=== PATIENT | female | born 1980 | race African-American/Black ===

== ENCOUNTER 2017-03-27 13:00 | Emergency (ER) | payer SELFPAY ==
[~2017-03-27] VITALS: Ht 160 cm; Wt 79.8 kg
[~2017-03-27 13:00] MED LIST: ONDA4TAB10 PO
[2017-03-27] MEDS ORDERED: ACETAMINOPHEN/CODEINE 300/30MG TABLET PO ONE (13:45)
[2017-03-27] MEDS ORDERED: ACET-704 PO (13:56)
--- NOTE | 2017-03-27 13:56 | PHYS DOC ---
Past History Past Medical History: Anxiety, Depression Past Surgical History: No Surgical History Alcohol Use: Rarely Drug Use: None Adult General Chief Complaint Chief Complaint: FACE PROBLEM HPI HPI 37-year-old male patient states she had pain in her upper lips for the last 2 or 3 days and thinks she has a cold sore or infection. Patient denies recent fever and chills and injury to lips. Patient states she had the same problem several years ago and treated with special antibiotic. Review of Systems Review of Systems Constitutional: Denies fever or chills [] Eyes: Denies change in visual acuity, redness, or eye pain [] HENT: Denies nasal congestion or sore throat [] Respiratory: Denies cough or shortness of breath [] Cardiovascular: No additional information not addressed in HPI [] GI: Denies abdominal pain, nausea, vomiting, bloody stools or diarrhea [] : Denies dysuria or hematuria [] Musculoskeletal: Denies back pain or joint pain [] Integument: Reports rash or skin lesions [] Neurologic: Denies headache, focal weakness or sensory changes [] Endocrine: Denies polyuria or polydipsia [] All other systems were reviewed and found to be within normal limits, except as documented in this note. Current Medications Current Medications Current Medications Medications (Trade) Dose Ordered Sig/Tico Start Time Stop Time Status Last Admin Dose Admin Acetaminophen/ Codeine Phosphate (Tylenol #3) 1 tab 1X ONCE 03/27/17 13:45 03/27/17 13:46 DC Allergies Allergies Allergies Coded Allergies Type Severity Reaction Last Updated Verified No Known Drug Allergies 08/13/15 No Physical Exam Physical Exam Constitutional: Well developed, well nourished, mild distress, non-toxic appearance. [] HENT: Normocephalic, atraumatic, bilateral external ears normal, oropharynx moist, no oral exudates, nose normal, upper lip without edema, 2 small areas of tenderness without other Eyes: PERRLA, EOMI, conjunctiva normal, no discharge. [] Neck: Normal range of motion, no tenderness, supple, no stridor. [] Cardiovascular:Heart rate regular rhythm, no murmur [] Lungs & Thorax: Bilateral breath sounds clear to auscultation [] EKG EKG [] Radiology/Procedures Radiology/Procedures [] Course & Med Decision Making Course & Med Decision Making Evaluation of patient in ER showed 37-year-old female patient complaining of upper lip pain and 2 small lesion on her lip. Patient had unremarkable physical exam except for upper lip tenderness with 2 macular lesions. Plan to discharge patient home with diagnosis of cold sore. Dragon Disclaimer Dragon Disclaimer This electronic medical record was generated, in whole or in part, using a voice recognition dictation system. Departure Departure: Impression: Primary Impression: Cold sore Disposition: HOME, SELF-CARE (At 1402) Condition: STABLE Referrals: JAISON SUERO MD (PCP) Patient Instructions: Cold Sore Additional Instructions: Follow-up with your primary care physician as needed Apply [id number] Abreva on affected area twice a day Scripts Acetaminophen With Codeine (TYLENOL WITH CODEINE #3 TABLET) 1 Each Tablet 1 TAB PO Q6HRS, #10 TAB Prov: LADY AMAYA MD 03/27/17 LADY AMAYA MD Mar 27, 2017 13:56
[2017-03-27 14:00] VITALS: BP 107/71
== END 2017-03-27 14:25 | disposition home or self-care (01) ==
LOC: ER 13:00
DX: B00.1 Herpesviral vesicular dermatitis (principal); K13.79 Other lesions of oral mucosa
CPT/HCPCS: 99283

== ENCOUNTER 2021-01-16 02:23 | Emergency (ER) | payer OTHER ==
[~2021-01-16] VITALS: Ht 160 cm; Wt 80.5 kg
[~2021-01-16 02:23] MED LIST changes: +ACET-704 PO
[2021-01-16 02:35] VITALS: BP 109/68
[2021-01-16] MEDS ORDERED: CEPH500C PO (02:58)
--- NOTE | 2021-01-16 02:59 | PHYS DOC ---
Past History Past Medical History: Anxiety, Depression Past Surgical History: No Surgical History Alcohol Use: Rarely Drug Use: None Adult General Chief Complaint Chief Complaint: PAIN ON URINATION HPI HPI Patient is a 41-year-old female who presents with a chief complaint of urinary tract infection. States she went to an urgent care today, was diagnosed with a urinary tract infection and was given a prescription of Cipro but did not get a dose before she left. States she went to the [facility] to pick it up and was told that they were out of stock of this and she was not able to pick it up. States she is here to get antibiotics. Denies any headache, fevers, chest pain, shortness of breath, abdominal pain, nausea, vomiting, hematuria. Denies any vaginal bleeding, discharge or pain or history of STIs. Review of Systems Review of Systems Review of systems otherwise unremarkable except noted in HPI Allergies Allergies Allergies Coded Allergies Type Severity Reaction Last Updated Verified No Known Drug Allergies 08/13/15 No Physical Exam Physical Exam Constitutional: Well developed, well nourished, no acute distress, non-toxic appearance. [] HENT: Normocephalic, atraumatic, Neck: Normal range of motion, no tenderness, supple, no stridor. [] Cardiovascular:Heart rate regular rhythm, no murmur [] Lungs & Thorax: Bilateral breath sounds clear to auscultation [] Abdomen: soft, no tenderness, no masses, no pulsatile masses. [] Skin: Warm, dry, no erythema, no rash. [] Back: no CVA tenderness. [] Neurologic: Alert and oriented X 3, no focal deficits noted. [] Psychologic: Affect normal, judgement normal, mood normal. [] Current Patient Data Vital Signs Vital Signs Date Time Temp Pulse Resp B/P (MAP) Pulse Ox O2 Delivery O2 Flow Rate FiO2 01/16/21 02:35 97.7 79 18 109/68 (82) 98 Room Air EKG EKG [] Radiology/Procedures Radiology/Procedures [] Heart Score C/O Chest Pain: N/A Risk Factors: Risk Factors: DM, Current or recent (<one month) smoker, HTN, HLP, family histo ry of CAD, obesity. Risk Scores: Risk Factors: DM, Current or recent (<one month) smoker, HTN, HLP, family history of CAD, obesity. Course & Med Decision Making Course & Med Decision Making Patient is a 41-year-old female who presents with urinary tract infection Vital signs not concerning. Physical exam noted above. negative. Started patient on Keflex in the ED and given handwritten prescription. Given for imaging. Discussed all findings with patient. Advised to take antibiotics as prescribed until gone. Advised to follow-up with the primary care physician on Monday to set up a follow-up visit. Gave return precautions to the ED. Patient grateful, verbalized understanding and agreed with plan of discharge. Dragon Disclaimer Dragon Disclaimer This electronic medical record was generated, in whole or in part, using a voice recognition dictation system. Departure Departure: Impression: Primary Impression: Urinary tract infection Disposition: HOME / SELF CARE / HOMELESS Condition: GOOD Referrals: PCP,NATALIYA (PCP) SREEDHAR ADAMS Patient Instructions: Urinary Tract Infection Additional Instructions: Thank you for coming into the emergency department tonight and allowing us to take care of you. Please read the attached information carefully to go over things we discussed. You were started on a new antibiotic here in the emergency department and given a paper prescription to take to the pharmacy tomorrow and get filled. Please take as prescribed and until gone. Please take with plenty of water. Please follow-up with your primary care physician on Monday to update on ED visit and set up a follow-up as soon as possible. If you do not have a primary care physician you can call the office at the number provided to establish care. Please come back to the ED with new or concerning symptoms as discussed. Scripts Cephalexin (KEFLEX) 500 Mg Capsule 1 CAP PO BID for UTI for 7 Days, #14 CAP Prov: CAPRICE JUAREZ MD 01/16/21 CAPRICE JUAREZ MD Jan 16, 2021 02:59
[2021-01-16] MEDS ORDERED: CEPHALEXIN 250 MG CAPSULE PO ONE (03:00)
[2021-01-16] MEDS ORDERED: PHENAZOPYRIDINE 200 MG TABLET. PO ONE (03:00)
[2021-01-16 03:06] LABS: COLOR,URINE YELLOW
[2021-01-16 03:07] LABS: BACTERIA,URINE MOD /HPF (0-FEW); BILIRUBIN,URINE NEG (NEG); CLARITY,URINE HAZY; GLUCOSE,URINE NEG (NEG); NITRITE,URINE POS (NEG); SQUAMOUS EPITHELIAL CELL,UR OCC /LPF; WBC,URINE >40 /HPF (0-4)
== END 2021-01-16 03:09 | disposition home or self-care (01) ==
LOC: ER 02:23
DX: N39.0 Urinary tract infection, site not specified (principal); Z87.440 Personal history of urinary (tract) infections
CPT/HCPCS: 81001; 81025; 87077; 87086; 87186; 99283-25

== ENCOUNTER 2021-08-14 08:39 | Emergency (ER) | payer OTHER ==
[~2021-08-14] VITALS: Ht 162.6 cm; Wt 81.8 kg
[~2021-08-14 08:39] MED LIST changes: +CEPH500C PO
[2021-08-14 08:46] VITALS: BP 127/83
[2021-08-14] MEDS ORDERED: AMOX1TAB61 PO (09:14)
[2021-08-14] MEDS ORDERED: HYDR-2155 PO (09:14)
--- NOTE | 2021-08-14 09:15 | PHYS DOC ---
Past History Past Medical History: Anxiety, Depression Past Surgical History: No Surgical History Alcohol Use: None Drug Use: None General Adult EDM: Chief Complaint: DENTAL PROBLEM HPI: HPI: Patient is a 41-year-old female coming in for left lower molar pain and facial swelling. Patient states that she has had a history of cavities and dental infections but thinks it was exacerbated by eating some candy. Denies any damage or breaking to the tooth. Denies any fevers or purulent drainage. Denies any possibility of Review of Systems: Review of Systems: All other systems within normal limits except for as noted in the HPI Allergies: Allergies: Allergies Coded Allergies Type Severity Reaction Last Updated Verified No Known Drug Allergies 08/13/15 No Physical Exam: PE: Constitutional: Well developed, well nourished, no acute distress, non-toxic appearance. [] HENT: Normocephalic, atraumatic, bilateral external ears normal, nose normal. Multiple dental caries, slight swelling of gingiva, no fluctuance [] Eyes: PERRLA, conjunctiva normal, no discharge. [] Neck: No rigidity, supple, no stridor. [] Cardiovascular: Regular rate and rhythm, brisk cap refill [] Lungs & Thorax: Non labored symmetric respirations, no tachypnea or respiratory distress [] Abdomen: Soft, nondistended. Skin: Warm, dry, no erythema, no rash. [] Back: Unremarkable Extremities: No deformities, range of motion grossly intact, no lower extremity edema [] Neurologic: Alert and oriented X 3, no focal deficits noted. [] Psychologic: Affect normal, judgement normal, mood normal. [] Current Patient Data: Vital Signs: Vital Signs Date Time Temp Pulse Resp B/P (MAP) Pulse Ox O2 Delivery O2 Flow Rate FiO2 08/14/21 08:46 98.3 75 16 127/83 (98) 98 Room Air EKG: EKG: [] Radiology/Procedures: Radiology/Procedures: [] Heart Score: C/O Chest Pain: No Risk Factors: Risk Factors: DM, Current or recent (<one month) smoker, HTN, HLP, family history of CAD, obesity. Risk Scores: Score 0 - 3: 2.5% MACE over next 6 weeks - Discharge Home Score 4 - 6: 20.3% MACE over next 6 weeks - Admit for Clinical Observation Score 7 - 10: 72.7% MACE over next 6 weeks - Early Invasive Strategies Course & Med Decision Making: Course & Med Decision Making Pertinent Labs and Imaging studies reviewed. (See chart for details) [] Vincenzo Disclaimer: Vincenzo Disclaimer: This electronic medical record was generated, in whole or in part, using a voice recognition dictation system. Departure Departure: Impression: Primary Impression: Infected dental caries Disposition: HOME / SELF CARE / HOMELESS Condition: STABLE Referrals: PCP,NO (PCP) Patient Instructions: Dental Caries-Brief Scripts Hydrocodone Bit/Acetaminophen (HYDROCODONE-APAP 5-325 ) 1 Each Tablet 1 TAB PO PRN Q6HRS PRN for PAIN for 3 Days, #10 TAB 0 Refills Prov: SVEN GRANT MD 08/14/21 Amoxicillin/Potassium Clav (AUGMENTIN 875-125 TABLET) 1 Each Tablet 1 TAB PO BID for antibiotic for 10 Days, #20 TAB 0 Refills Prov: SVEN GRANT MD 08/14/21 SVEN GRANT MD August 14, 2021 09:15
== END 2021-08-14 09:19 | disposition home or self-care (01) ==
LOC: ER 08:39
DX: K02.9 Dental caries, unspecified (principal)
CPT/HCPCS: 99283